=== PATIENT | female | born 1995 | race Caucasian/White ===

== ENCOUNTER 2021-09-02 22:48 | Emergency (ER) | payer OTHER ==
[~2021-09-02] VITALS: Ht 154.9 cm; Wt 73.0 kg
[2021-09-02 22:56] VITALS: BP 129/93
[2021-09-02] MEDS ORDERED: ACET-2708 MT (23:49)
== END 2021-09-03 00:48 | disposition home or self-care (01) ==
LOC: ER 22:48
DX: S00.33XA Contusion of nose, initial encounter (principal); X58.XXXA Exposure to other specified factors, initial encounter; Y93.89 Activity, other specified; Y92.89 Other specified places as the place of occurrence of the external cause; Y99.8 Other external cause status
CPT/HCPCS: 81025; 99282